=== PATIENT | female | born 1945 | race Caucasian/White ===

== ENCOUNTER → 2017-04-18 | Outpatient (CLI) | payer OTHER | LOC: FIMAGING 10:43 | PROVIDERS: ATTEND Internal Medicine | DX: Z12.31 Encounter for screening mammogram for malignant neoplasm of breast (principal) | CPT/HCPCS: G0202 ==

== ENCOUNTER → 2018-01-26 | Outpatient (CLI) | payer OTHER | LOC: BMCIMAGING 15:55 | PROVIDERS: ATTEND Internal Medicine | DX: J44.9 Chronic obstructive pulmonary disease, unspecified (principal) ==

== ENCOUNTER 2018-03-29 02:51 | Emergency (ER) | payer OTHER ==
[2018-03-29 03:01] VITALS: BP 160/67
--- NOTE | 2018-03-29 03:18 | EDPHY ---
H & P Stated Complaint: Accidentally pulled trach out while sleeping. Time Seen by Provider: 03/29/18 03:16 HPI/ROS: HPI CHIEF COMPLAINT: Accidentally removed tracheostomy HISTORY OF PRESENT ILLNESS: A very pleasant 72-year-old female recent significant medical history for subdural hemorrhage requiring a left-sided craniotomy at [facility], complicated by a prolonged course on the ventilator in the ICU and eventually got a tracheostomy. Additionally PEG tube. She has now been home. She lives in [place]. She presents emergency room as she accidentally pulled her tracheostomy out of her tracheotomy site this evening. No trouble breathing. Her son tried to place it back into the neck but was unable to do so. Patient wears an uncuffed 6.0 unfenestrated tracheostomy. Past Medical History: Subdural hemorrhage, trigeminal neuralgia Past Surgical History: Right-sided trigeminal neuralgia surgery, subdural her marriage requiring craniotomy, tracheostomy, peg tube Social History: Denies daily use drugs alcohol tobacco. Family History: Noncontributory ENT Doctor in [place]: Dr. Asif DAVIES REVIEW OF SYSTEMS: A comprehensive 10 point review of systems is otherwise negative aside from elements mentioned in the history of present illness. Exam Constitutional elderly, nontoxic triage nursing summary reviewed, vital signs reviewed, awake/alert. Eyes normal conjunctivae and sclera, EOMI, PERRLA. HENT neck exam: Open tracheostomy site. No significant bleeding. normal inspection, atraumatic, moist mucus membranes, no epistaxis, neck supple / no meningismus, no raccoon eyes. Respiratory clear to auscultation bilaterally, normal breath sounds, no respiratory distress, no wheezing. Cardiovascular rate normal, regular rhythm, no murmur, no edema, distal pulses normal. Gastrointestinal soft, non-tender, no rebound, no guarding, normal bowel sounds, no distension, no pulsatile mass. Genitourinary no CVA tenderness. Musculoskeletal no midline vertebral tenderness, full range of motion, no calf swelling, no tenderness of extremities, no meningismus, good pulses, neurovascularly intact. Skin pink, warm, & dry, no rash, skin atraumatic. Neurologic awake, alert and oriented x 3, AAOx3, moves all 4 extremities equally, motor intact, sensory intact, CN II-XII intact, normal cerebellar, normal vision, normal speech. Psychiatric normal mood/affect. Heme/Lymph/Immune no lymphadenopathy. Differential Diagnosis: Includes but is not limited to in a particular order need for new tracheostomy. Need for new placement of tracheostomy. Medical Decision Making: Plan for this patient will acquire 60 on fenestrated uncuffed tracheostomy tube. Re-evaluation: We did not have the correct size of the tracheostomy tube. It was an uncuffed on fenestrated tube. However the son brought from home with able to clean it and then place it directly into the open tracheostomy site with a guiding stylet. Patient tolerated this very well She now feels very comfortable with it. She is able to talk as her button was placed back on. She is breathing appropriately. Denies any significant pain. I have referred her to ENT here in [place] she lives in [place] but was seen ENT in [place]. This is difficult for her given her age. The sons requesting local ENT follow-up which I will provide for them. Additionally went over tracheostomy tube and equipment and explained everything in detail to the son they understand. Source: Patient - Personal History Current Tetanus/Diphtheria Vaccine: Unsure Current Tetanus Diphtheria and Acellular Pertussis (TDAP): Unsure - Medical/Surgical History Hx Asthma: No Hx Chronic Respiratory Disease: No Hx Diabetes: No Hx Cardiac Disease: No Hx Renal Disease: No Hx Cirrhosis: No Hx Alcoholism: No Hx HIV/AIDS: No Hx Splenectomy or Spleen Trauma: No Other PMH: Subdural hematoma, craniotomy, tracheotomy, PEG tube. - Social History Smoking Status: Former smoker Constitutional: Initial Vital Signs Temperature (C) 36.8 C 03/29/18 02:56 Heart Rate 86 03/29/18 02:56 Respiratory Rate 16 03/29/18 02:56 Blood Pressure 160/67 H 03/29/18 02:56 O2 Sat (%) 91 L 03/29/18 02:56 O2 Delivery Mode Room Air Allergies/Adverse Reactions: erythromycin base Allergy (Verified 03/29/18 03:02) Penicillins Allergy (Verified 03/29/18 03:01) tetracycline Allergy (Verified 03/29/18 03:02) Home Medications: Medication Instructions Recorded Baclofen 03/29/18 Carbamazepine 03/29/18 Venlafaxine 25MG (*) 03/29/18 Vimpat 03/29/18 Departure - Departure Disposition: Home, Routine, Self-Care Clinical Impression: Tracheostomy in place Condition: Good Instructions: Tracheostomy Care (ED) Additional Instructions: Return to the emergency room if there is any worsening symptoms questions or concerns. Referrals: Skye Bardales MD [Primary Care Provider] - As per Instructions Zachary Bay MD [Medical Doctor] - As per Instructions
== END 2018-03-29 03:50 | disposition home or self-care (01) ==
DX: Z43.0 Encounter for attention to tracheostomy (principal); Z87.891 Personal history of nicotine dependence

== ENCOUNTER → 2018-05-31 | Outpatient (CLI) | payer OTHER | LOC: FIMAGING 13:18 | PROVIDERS: ATTEND Internal Medicine | DX: Z12.31 Encounter for screening mammogram for malignant neoplasm of breast (principal) ==

== ENCOUNTER → 2018-06-08 | Outpatient (CLI) | payer OTHER | LOC: BMCIMAGING 10:07 | PROVIDERS: ATTEND Internal Medicine | DX: N60.02 Solitary cyst of left breast (principal) ==

== ENCOUNTER 2018-08-09 22:26 | Observation (INO) | payer OTHER ==
--- NOTE | 2018-08-09 22:32 | EDPHY ---
H & P Stated Complaint: mid back pain after lifting something this afternoon, "heard pop" Time Seen by Provider: 08/09/18 22:32 HPI/ROS: HPI CHIEF COMPLAINT: Upper lumbar spine pain. 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 The pain is located upper lumbar very low thoracic. It does radiate out paravertebral. She denies any leg pain. Denies saddle anesthesia, denies leg weakness, denies inability to walk. Pain does not go down her legs. It is localized to the upper lumbar spine. And paravertebral. No fever, no acute trauma. This happened when she was lifting a table earlier today. Patient denies any direct trauma, denies abdominal pain, chest pain or shortness of breath. Pain is located upper lumbar spine 1 focal area. Past Medical History: Subdural hemorrhage status post craniotomy, peg tube, tracheostomy. Past Surgical History: Subdural hemorrhage status post craniotomy. Peg tube, tracheotomy. Social History: Denies drugs alcohol tobacco. Family History: Noncontributory. ROS REVIEW OF SYSTEMS: 10 Systems were reviewed and negative with the exception of the elements mentioned in the history of present illness. Exam Constitutional appears well nontoxic triage nursing summary reviewed, vital signs reviewed, awake/alert. Eyes normal conjunctivae and sclera, EOMI, PERRLA. HENT neck tracheotomy site clothes, normal inspection, atraumatic, moist mucus membranes, no epistaxis, neck supple/ no meningismus, no raccoon eyes. Respiratory clear to auscultation bilaterally, normal breath sounds, no respiratory distress, no wheezing. Cardiovascular rate normal, regular rhythm, no murmur, no edema, distal pulses normal. Gastrointestinal soft, non-tender, no rebound, no guarding, normal bowel sounds, no distension, no pulsatile mass. Genitourinary no CVA tenderness. Musculoskeletal no significant saddle anesthesia, no leg weakness, normal gait, mild tender palpation upper lumbar spine 1 focal area and paravertebral, no crepitus, no step-offs, no evidence of trauma on external back exam, full range of motion, no calf swelling, no tenderness of extremities, no meningismus, good pulses, neurovascularly intact. Skin pink, warm, & dry, no rash, skin atraumatic. Neurologic awake, alert and oriented x 3, AAOx3, moves all 4 extremities equally, motor intact, sensory intact, CN II-XII intact, normal cerebellar, normal vision, normal speech. Psychiatric normal mood/affect. Heme/Lymph/Immune no lymphadenopathy. Differential Diagnosis: Includes but is not limited to in a particular order annular tear, disc herniation, nerve root compression, compression fracture cauda equina, spinal epidural abscess Medical Decision Making: Plan for this patient x-ray lumbar spine, IV establishment with IV pain medicine including IV fentanyl 50 mcg IV Valium 2.5 mg, IV Decadron gentle IV fluids and re-evaluate. Re-evaluation: 0101: Patient still has ongoing back pain. Unable to sit up. Plan will be for hospital admission for symptomatic back pain control. X-ray and CT scan reviewed. There may be small endplate fractures T11, L3. This may be causing her pain. Will keep in the hospital overnight will ask the hospitalist service to admit for pain control. Patient would prefer this. She does not feel comfortable going home. Spoke with the hospitalist service Dr. Lynn. Agrees to admit. Source: Patient - Personal History Current Tetanus Diphtheria and Acellular Pertussis (TDAP): Unsure - Medical/Surgical History Hx Asthma: No Hx Chronic Respiratory Disease: No Hx Diabetes: No Hx Cardiac Disease: No Hx Renal Disease: No Hx Cirrhosis: No Hx Alcoholism: No Hx HIV/AIDS: No Hx Splenectomy or Spleen Trauma: No Other PMH: Subdural hematoma, craniotomy, tracheotomy, PEG tube. - Social History Smoking Status: Former smoker Constitutional: Initial Vital Signs Temperature (C) 36.6 C 08/09/18 22:29 Heart Rate 92 08/09/18 22:29 Respiratory Rate 17 08/09/18 22:29 Blood Pressure 131/71 H 08/09/18 22:29 O2 Sat (%) 92 08/09/18 22:29 O2 Delivery Mode Nasal Cannula O2 (L/minute) 2 Allergies/Adverse Reactions: erythromycin base Allergy (Verified 08/09/18 22:27) Penicillins Allergy (Verified 08/09/18 22:27) tetracycline Allergy (Verified 08/09/18 22:27) Home Medications: Medication Instructions Recorded Acetaminophen [Tylenol 325mg (*)] 650 mg PO Q4HRS PRN tab 12/07/18 Acetamn/Diphenhydramine 500/25 2 each PO HS 08/10/18 [Tylenol PM (*)] Doxepin HCl [Doxepin HCl] 50 mg PO DAILY 08/10/18 Ganciclovir [Zirgan] 1 drop RTEYE QID 08/10/18 LORazepam [Ativan (*)] 0.5 - 1 mg PO Q8HRS PRN #5 tab 08/10/18 Levothyroxine [Synthroid 50 mcg 50 mcg PO DAILY06 08/10/18 (*)] Methocarbamol [Robaxin 750 mg (*)] 750 mg PO TID PRN #9 tab 08/10/18 Simvastatin [Simvastatin] 20 mg PO DAILY 08/10/18 Venlafaxine HCl [Venlafaxine HCl 150 mg PO DAILY 08/10/18 ER] carBAMazepine [Carbamazepine] 200 mg PO BID 08/10/18 prednisoLONE ACET 1% [Pred Forte 1 drops RTEYE BID 08/10/18 1% (*)] traMADol [Ultram 50 mg (*)] 50 mg PO HS 08/10/18 valACYclovir [Valtrex (*)] 500 mg PO DAILY 08/10/18 Medical Decision Making - Data Points Laboratory Results: Laboratory Results 08/09/18 22:54 08/09/18 22:45 Medications Given: Discontinued Medications Hydrocodone Bitart/Acetaminophen ([place] 5/325) 1 - 2 tab PO Q4HRS PRN PRN Reason: Pain, Moderate Able to Take PO Stop: 08/20/18 01:52 Last Admin: 08/10/18 11:01 Dose: 1 tab Dexamethasone (Decadron Injection) 10 mg IVP EDNOW ONE Stop: 08/09/18 22:38 Last Admin: 08/09/18 23:02 Dose: 10 mg Diazepam (Valium) 2.5 mg IVP EDNOW ONE Stop: 08/09/18 22:38 Last Admin: 08/09/18 22:51 Dose: 2.5 mg Enoxaparin Sodium (Lovenox) 40 mg SC DAILY XAVIER Stop: 02/06/19 08:59 Last Admin: 08/10/18 08:38 Dose: 40 mg Fentanyl (Sublimaze) 50 mcg IVP EDNOW ONE Stop: 08/09/18 22:38 Last Admin: 08/09/18 22:51 Dose: 50 mcg Hydromorphone HCl (Dilaudid) 0.5 mg IVP EDNOW ONE Stop: 08/09/18 23:29 Last Admin: 08/09/18 23:32 Dose: 0.5 mg Sodium Chloride (Ns) 500 mls @ 1,500 mls/hr IV ONCE ONE Stop: 08/09/18 22:56 Last Admin: 08/09/18 22:50 Dose: 500 mls Lorazepam (Ativan) 0.5 - 1 mg PO Q8HRS PRN PRN Reason: Anxiety, Able to Take PO Stop: 02/06/19 01:52 Last Admin: 08/10/18 03:49 Dose: 0.5 mg Departure - Departure Disposition: [facility] Clinical Impression: Low back strain Qualifiers: Encounter type: initial encounter Qualified Code(s): S39.012A - Strain of muscle, fascia and tendon of lower back, initial encounter Back pain Qualifiers: Back pain location: low back pain Chronicity: acute Back pain laterality: unspecified Sciatica presence: without sciatica Qualified Code(s): M54.5 - Low back pain Condition: Good
[2018-08-09] MEDS ORDERED: NS 500 ML IV ONE (22:37)
[2018-08-09] MEDS ORDERED: DIAZEPAM 5 MG/ML 1 ML SYR IVP ONE (22:37)
[2018-08-09] MEDS ORDERED: fentaNYL 100 MCG/2 ML INJ IVP ONE (22:37)
[2018-08-09] MEDS ORDERED: DEXAMETHASONE 10 MG/ML VIAL IVP ONE (22:37)
[2018-08-09] MEDS ORDERED: DEXAMETHASONE 4 MG/ML VIAL ONE (22:48)
[2018-08-09] MEDS ORDERED: HYDROmorphONE/DILAUDID 2 MG/ML INJ IVP ONE (23:28)
[2018-08-10 01:47] LABS: PLATELET COUNT 247 10^3/uL (150-400)
[2018-08-10 01:51] LABS: INR 0.87 (0.83-1.16); PROTIME(PATIENT) 12.1 SEC (12.0-15.0)
[2018-08-10] MEDS ORDERED: ONDANSETRON 4 MG/2 ML VIAL IVP PRN (01:53)
[2018-08-10] MEDS ORDERED: HYDROCODONE/APAP 5/325 TAB PO PRN (01:53)
[2018-08-10] MEDS ORDERED: ONDANSETRON DISINTEGRATING 4 MG TAB PO PRN (01:53)
[2018-08-10] MEDS ORDERED: ACETAMINOPHEN 325 MG TAB PO PRN (01:53)
[2018-08-10] MEDS ORDERED: LORazepam 0.5 MG TAB PO PRN (01:53)
--- NOTE | 2018-08-10 07:11 | GHP ---
DATE OF ADMISSION: 08/10/2018 PRIMARY CARE PHYSICIAN: Skye Bardales MD. SOURCE: Patient provides history, is a reliable historian. The EMR was reviewed and case discussed with ED provider. CHIEF COMPLAINT: Back pain. HISTORY OF PRESENT ILLNESS: This is a very pleasant 73-year-old female with past medical history sig nificant for osteoporosis, trigeminal neuralgia, right ocular shingles, recent history of iatrogenic subdural hematoma, status post craniotomy, trach and PEG back in January, now improved, and trach and PEG removed, who presents to the emergency department today with complaints of sudden onset of mid to lo w back pain spasms and pain. 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 The patient reports that she f elt a pop and sudden back pain and spasm. She did not note any numbness, tingling, focal weakness, u rinary or fecal incontinence or retention. The patient reports that she was in her usual state of he alth up until that point. She has known severe osteoporosis, but has declined to utilize any treatme nt due to a 1st cousin developing a severe bone fracture thought to be due to [place]. REVIEW OF SYSTEMS: Ten systems reviewed and negative except as noted above. ALLERGIES: Erythromycin, penicillin, tetracycline. HOME MEDICATIONS: Patient is currently on acyclovir p.o. and ocular drops, doxepin, Vimpat, venlafax ine, carbamazepine, Baclofen. PAST MEDICAL HISTORY: Significant for osteoporosis, right ocular shingles, trigeminal neuralgia. As noted above in January 2018, the patient underwent a craniotomy and had a subsequent complication of sub dural hematoma requiring more extensive craniotomy, trach, and PEG, which were recently removed. PAST SURGICAL HISTORY: Significant for bilateral cataract extraction with lens placement, craniotomy as noted above, tracheostomy, and PEG. FAMILY HISTORY: Significant for 1st cousin with osteoporosis. No family history of seizures or intr acranial hemorrhage. SOCIAL HISTORY: Patient lives with her son. She quit smoking tobacco many years ago. She denies an y illicit drug use. Occasional alcohol. CODE STATUS: Full. PHYSICAL EXAMINATION: VITAL SIGNS: Upon arrival to the emergency department, blood pressure 131/71, heart rate 92, respiratory rate 17, O2 saturation 92% on room air, temperature 36.6. Current vitals available: Blood pressure is 135/82, heart rate 92, respiratory rate 16, O2 saturatio n 92% on room air, temperature 36.6. GENERAL: No acute distress. Very pleasant, frail, thin lady is lying quietly in bed. When she move s, she does grimace and seems to writhe slightly in pain with complaints of back pain. HEAD: Normocephalic, atraumatic. Patient does have a slow healing appearing circular wound at the t op of her scalp and some abrasions and excoriations. EYES: Patient's right eye with conjunctival injection and tearing. Pupils are equal, round, react t o light bilaterally and symmetric. No scleral icterus appreciated. Lens reflexes appreciated bilate rally. ENT: Mucous membranes appear moist. Dentition in fair condition. No nasal discharge. NECK: Supple. Trachea midline. CV: Regular rate and rhythm. No murmurs, rubs, or gallops appreciated. RESPIRATORY: Lungs clear to auscultation bilaterally. No wheezes, rales, or rhonchi appreciated. U nlabored breathing. ABDOMEN: Positive bowel sounds. Soft, nontender to palpation. No rebound, guarding, or masses appr eciated. Patient with a well-healed small surgical scar in the left upper quadrant. : No suprapubic tenderness to palpation. No Jensen catheter in place. Patient has an external fem maverick urinal attached to suction with clear yellow urine. EXTREMITIES: No cyanosis, clubbing, or edema. Patient with some chronic lower extremity skin change s. Patient with 1+ pedal pulses bilaterally and symmetric. NEURO: Grossly nonfocal. Moves all extremities. Lower extremity movement with some difficulty, but sensation is intact and symmetric bilaterally. Strength overall is grossly diminished while lying i n bed. The patient unable to sit up independently due to increase in her pain. PSYCH: Patient does appear a little bit anxious, but she is pleasant and cooperative. Thought proce ss, content, and questions are all appropriate. IMAGING: Lumbar spine showing stable old moderate T12 compression fracture, unchanged from October 20. Suspect mild superior cortical endplate concavity which developed since previous study. Mild ge neralized compression fracture of L3 centrum, not previously seen. CT spine image report reviewed sh owing old moderate T12 compression fracture with mild dorsal retropulsion similar since 10/24/2015. There is mild superior cortical endplate compression deformity of T11 with some dorsal cortical buckl ing, could be acute. No significant central canal stenosis. Mild superior cortical endplate gold beatris deformity of L3, which could also be acute. No significant central canal stenosis. Stable bila teral adrenal gland adenomas, unchanged from 2016. ASSESSMENT AND PLAN: A very pleasant 73-year-old female with a history of osteoporosis, right ocular shingles, trigeminal neuralgia, recent hospital stay complicated by subdural hematomas requiring tra ch and PEG, who presents to the emergency department today with complaints of sudden onset of mid to low back pain following a lifting injury. 1. Back pain. Patient is mostly complaining currently of back spasm type pain, likely due to increa sed strain, but potentially some response to current acute mild compression fractures in the thoracic lumbar spine. The patient is trying to avoid narcotic therapy. Tylenol will be available as well a s Ativan for muscle relaxation and anxiety and sleep, which patient is just really trying to attain. K-pad p.r.n. Consider a Lidoderm patch. PT, OT in a.m. Discussed with the patient that I gave opt ion of neurosurgical evaluation, although discussed this is very low likely to be a surgical or proce dural need, and patient reports that she would not want to even consider a vertebroplasty at this taylor e and would like to continue with conservative management. 2. Endplate cortical compression fracture T11 and L3, which appear to be acute. Plan as noted above . Supportive care. 3. Chronic medical issues. 4. Right ocular shingles. Offered to order patient's acyclovir and drops. She declines at this taylor e. If needed, we will have family bring in. Patient hoping to discharge later today. 5. History of trigeminal neuralgia, stable. 6. Osteoporosis. Patient is not currently on any supplementation and she has declined bisphosphonat e therapy in the past. 7. Fluid, electrolyte, nutrition. The patient tolerating p.o. well. She did receive a small 500 cc bolus in the emergency department. Will encourage oral hydration at this point. Electrolytes are a ppropriate. No need for replacement. Diet as tolerated. 8. Prophylaxis. Sequential compression devices, holding anticoagulation. Anticipate short hospital stay, but consider in addition if patient should stay additional day. 9. Code status is full. DISPOSITION: Patient admitted to observation status on the Med-Surg floor for pain control and physi anh therapy evaluation. /[id number]/MODL
[2018-08-10] MEDS ORDERED: ENOXAPARIN 40 MG/0.4 ML SYR SC SCH (09:00)
--- NOTE | 2018-08-10 10:04 | ASMTCMCOM ---
CM Note CM Note Notes: CM reviewed pt's chart for d/c planning. Pt is a 73 y/o female that came to the ED after pain developed in her lumbar spine; she had been lifting a table and heard a "pop". Her pain is keeping her from 'sitting". Significant past medical hx includes a subdural hemorrhge status post craniotomy, peg tube and tracheotomy. Pt is retired. No CM needs identified. CM will follow for changes. D/C Plan: Anticipate independent. Date Signed: 08/10/2018 10:03 AM Electronically Signed By:Emilie Martinez
[2018-08-10 11:27] VITALS: BP 113/51
[2018-08-10] MEDS ORDERED: METHOCARBAMOL 750 MG TAB PO SCH (16:00)
--- NOTE | 2018-08-10 17:44 | GDS ---
DISCHARGE DIAGNOSIS: Acute back pain. PHYSICAL EXAM: GENERAL: The patient is alert. VITAL SIGNS: Afebrile at 36.9, pulse is 92, respirat ory rate 16, blood pressure is 113/51. She is saturating 92% on room air. I have seen and evaluated the patient on the day of discharge. HOSPITAL COURSE: The patient is a 73-year-old female who presented to the emergency room with compla ints of acute onset of back pain. She was evaluated during this hospitalization with a CT of the lum bar spine as well as x-ray. She received therapy evaluation from physical therapy and occupational t herapy. She is safe to be discharged home and is ambulating independently. There are no pending clark dies. DISCHARGE MEDICATIONS: Please refer to EMR form. I have provided the patient a prescription for Dale axin as well as Ativan at the time of disposition. Followup will be with her primary care physician. /[id number]/MODL
== END 2018-08-10 12:15 | disposition home or self-care (01) ==
LOC: F3E 08-10 02:16
PROVIDERS: ADMIT Family Medicine; ATTEND Family Medicine
DX: S39.012A Strain of muscle, fascia and tendon of lower back, initial encounter (principal); M80.08XA Age-related osteoporosis with current pathological fracture, vertebra(e), initial encounter for fracture; X50.0XXA Overexertion from strenuous movement or load, initial encounter; Y93.E9 Activity, other interior property and clothing maintenance; Y92.001 Dining room of unspecified non-institutional (private) residence as the place of occurrence of the external cause; G50.0 Trigeminal neuralgia; B02.39 Other herpes zoster eye disease; Z86.73 Personal history of transient ischemic attack (TIA), and cerebral infarction without residual deficits
CPT/HCPCS: 72100; 72131; 97116; 97161; 97165; G0378; G8978; G8979; G8980; G8987; G8988; G8989; J1100; J1170; J1650; J3010; J3360; 96374

== ENCOUNTER 2018-09-18 16:11 | Emergency (ER) | payer OTHER ==
--- NOTE | 2018-09-18 17:07 | EDPHY ---
H & P Stated Complaint: fell (unk reason)--poss LOC-wrist and face pain Time Seen by Provider: 09/18/18 16:44 HPI/ROS: CHIEF COMPLAINT: Fall, facial injuries HISTORY OF PRESENT ILLNESS: 73-year-old female presents after a fall with facial and wrist injuries. She tripped and fell forward, striking her face on the pavement. She tried to break her fall with her hands, now has bilateral wrist pain. She has a history of seizure disorder after a subdural hematoma. Currently taking Tegretol. She does not think she had a seizure today and there was no postictal confusion. Denies dizziness, headache or neck pain. REVIEW OF SYSTEMS: complete 10 point ROS reviewed and is negative except for the noted elements in the HPI Source: Patient - Personal History Current Tetanus/Diphtheria Vaccine: Unsure Current Tetanus Diphtheria and Acellular Pertussis (TDAP): Unsure - Medical/Surgical History Hx Asthma: No Hx Chronic Respiratory Disease: No Hx Diabetes: No Hx Cardiac Disease: No Hx Renal Disease: No Hx Cirrhosis: No Hx Alcoholism: No Hx HIV/AIDS: No Hx Splenectomy or Spleen Trauma: No Other PMH: Subdural hematoma, craniotomy 02/19, tracheotomy, PEG tube. - Social History Smoking Status: Former smoker Alcohol Use: Sober Drug Use: None - Physical Exam Exam: General Appearance: Alert, pleasant and talkative Head: facial abrasions Eyes: No conjunctival erythema, PERRLA, EOMI ENT, Mouth: Missing right upper teeth #6-8, nasal and right cheek abrasions Neck: Nontender, full range of motion without pain Respiratory: No chest wall tenderness, lungs clear bilaterally Cardiovascular: Regular rate and rhythm Abdomen: Abdomen is soft and nontender Skin: No lacerations Back: No midline T/L/S tenderness Extremities: Pelvis is stable and nontender; right wrist-tenderness and swelling on the medial aspect of the wrist; left wrist-tenderness and swelling over the lateral aspect of the wrist and proximal 4th digit Neurological: A&Ox3, normal motor function, normal sensory exam, cranial nerves intact Psychiatric: Mood and affect normal Constitutional: Initial Vital Signs Temperature (C) 36.4 C 09/18/18 16:35 Heart Rate 93 09/18/18 16:35 Respiratory Rate 16 09/18/18 16:35 Blood Pressure 112/70 09/18/18 16:35 O2 Sat (%) 94 09/18/18 16:35 O2 Delivery Mode Room Air Allergies/Adverse Reactions: erythromycin base Allergy (Verified 08/09/18 22:27) Penicillins Allergy (Verified 08/09/18 22:27) tetracycline Allergy (Verified 08/09/18 22:27) Home Medications: Medication Instructions Recorded Acetaminophen [Tylenol 325mg (*)] 650 mg PO Q4HRS PRN tab 08/10/18 Acetamn/Diphenhydramine 500/25 2 each PO HS 08/10/18 [Tylenol PM (*)] Doxepin HCl [Doxepin HCl] 50 mg PO DAILY 08/10/18 Ganciclovir [Zirgan] 1 drop RTEYE QID 08/10/18 LORazepam [Ativan (*)] 0.5 - 1 mg PO Q8HRS PRN #5 tab 08/10/18 Levothyroxine [Synthroid 50 mcg 50 mcg PO DAILY06 08/10/18 (*)] Methocarbamol [Robaxin 750 mg (*)] 750 mg PO TID PRN #9 tab 08/10/18 Simvastatin [Simvastatin] 20 mg PO DAILY 08/10/18 Venlafaxine HCl [Venlafaxine HCl 150 mg PO DAILY 08/10/18 ER] carBAMazepine [Carbamazepine] 200 mg PO BID 08/10/18 prednisoLONE ACET 1% [Pred Forte 1 drops RTEYE BID 08/10/18 1% (*)] traMADol [Ultram 50 mg (*)] 50 mg PO HS 08/10/18 valACYclovir [Valtrex (*)] 500 mg PO DAILY 08/10/18 Hydrocodone/APAP 5/325 [[place] 1 - 2 tab PO Q4H PRN #10 tab 09/18/18 5/325] Medical Decision Making - Diagnostics EKG Interpretation: EKG interpreted by me reveals normal sinus rhythm, rate of 87, diffuse nonspecific T-wave changes. Interpretation: Borderline EKG Imaging Results: Head CT 09/18/18 17:03 Impression: No acute intracranial hemorrhage or calvarial fracture. Celia Lindquist was notified of these findings by telephone at 5:44 PM on 09/18/2018 Left hand x-ray reveals a proximal 4th metacarpal fracture Right wrist x-ray reveals a distal radius fracture Imaging: I viewed and interpreted images myself Procedures: Orthoglass sugar-tong splint placed on the right upper extremity by the biomed tech. Neurovascularly intact after application. Ulnar gutter splint placed on the left upper extremity by the biomed tech. Neurovascularly intact after application. ED Course/Re-evaluation: This pt presents after a mechanical fall with bilateral UE injuries, facial abrasions and dental avulsions. Xrays reviewed with pt, splints placed. Strongly wants to go home, asymptomatic thoughout ED stay. labs/EKG unremarkable. Ultimately pt decided to d/c orthoglass splint LUE and have a left velcro splint placed so she could perform routine activities of daily living. Will f/u with hand surgeon. Differential Diagnosis: includes though not limited to ICH, Cspine fx, Ptx, hemorrhage, seizure, syncope - Data Points Laboratory Results: Laboratory Results 09/18/18 18:14 09/18/18 18:14 Point of Care Test Results: Chemistry 09/18/18 18:33 POC Troponin I 0.01 ng/mL ng/mL (0.00-0.08) Departure - Departure Disposition: Home, Routine, Self-Care Clinical Impression: Fracture of fourth metacarpal bone of left hand Qualifiers: Encounter type: initial encounter Fracture type: closed Metacarpal location: base Fracture alignment: displaced Qualified Code(s): S62.315A - Displaced fracture of base of fourth metacarpal bone, left hand, initial encounter for closed fracture Fracture of right distal radius Qualifiers: Encounter type: initial encounter Fracture type: closed Fracture morphology: Colles' Qualified Code(s): S52.531A - Colles' fracture of right radius, initial encounter for closed fracture Condition: Good Instructions: Hand Fracture (ED), Wrist Fracture in Adults (ED) Referrals: Skye Bardales MD [Primary Care Provider] - As per Instructions Todd Grider MD [Medical Doctor] - As per Instructions (Call to make an appointment with Dr. Grider. He is a hand surgeon.) Prescriptions: Hydrocodone/APAP 5/325 [[place] 5/325] 1 - 2 tab PO Q4H PRN #10 tab PRN Reason: Pain, Moderate
[2018-09-18 18:24] LABS: PLATELET COUNT 199 10^3/uL (150-400)
[2018-09-18 19:33] VITALS: BP 118/78
--- NOTE | 2018-09-18 23:12 | CPEKG ---
Test Reason : OPEN Blood Pressure : / mmHG Vent. Rate : 087 BPM Atrial Rate : 087 BPM P-R Int : 154 ms QRS Dur : 079 ms QT Int : 386 ms P-R-T Axes : 050 040 018 degrees QTc Int : 465 ms Sinus rhythm Borderline T wave abnormalities Confirmed by Celia Lindquist ([id number]) on 09/18/2018 11:11:29 PM Referred By: Confirmed By:Celia Lindquist
== END 2018-09-18 19:34 | disposition home or self-care (01) ==
PROC: 2W3CX1Z Immobilization of Right Lower Arm using Splint (ICD-10-PCS; principal; 2018-09-18)
DX: S62.315A Displaced fracture of base of fourth metacarpal bone, left hand, initial encounter for closed fracture (principal); S52.531A Colles' fracture of right radius, initial encounter for closed fracture; S00.81XA Abrasion of other part of head, initial encounter; M81.0 Age-related osteoporosis without current pathological fracture; G43.909 Migraine, unspecified, not intractable, without status migrainosus; W01.198A Fall on same level from slipping, tripping and stumbling with subsequent striking against other object, initial encounter; Y92.9 Unspecified place or not applicable; Y93.9 Activity, unspecified; Y99.9 Unspecified external cause status; Z87.891 Personal history of nicotine dependence
CPT/HCPCS: 29125; 70450; 73110; 73130; 93005; 99285; A4565; 84484-ER

== ENCOUNTER 2019-01-23 00:46 | Emergency (ER) | payer OTHER ==
--- NOTE | 2019-01-23 01:01 | EDPHY ---
H & P Stated Complaint: trip and fall, L wrist pain Time Seen by Provider: 01/23/19 00:55 HPI/ROS: Chief Complaint: Wrist injury HPI: 73-year-old woman had a mechanical trip and fall for rug this morning. She landed on her left outstretched wrist. She had immediately onset of pain and noted deformity. Recently had a fracture of the carpal bones on her left hand status post pinning in November. He did not hit her head. No loss of conscious. ROS: 10 systems were reviewed and were negative except those elements noted in the HPI. Social History: No smoking, no alcohol, no recreational drug use Family History: non-contributory Physical Exam: Gen: Awake, Alert, No Distress HEENT: Nose: no rhinorrhea Eyes: PERRLA, EOMI Mouth: Moist mucosa Neck: Supple, no JVD Chest: nontender, lungs clear to auscultation Heart: S1, S2 normal, no murmur Abd: Soft, non-tender, no guarding Back: no CVA tenderness, no midline tenderness Ext: Left wrist deformity consistent with a distal radial fracture. Sensation intact in the radial, median, and ulnar nerve distribution. Capillary refill less than 2 sec. Skin: no rash Neuro: CN II-XII intact, Sensation grossly intact, Strength 5/5 in bilateral upper and lower extremities - Personal History Current Tetanus/Diphtheria Vaccine: Yes Current Tetanus Diphtheria and Acellular Pertussis (TDAP): Yes - Medical/Surgical History Hx Asthma: No Hx Chronic Respiratory Disease: No Hx Diabetes: No Hx Cardiac Disease: No Hx Renal Disease: No Hx Cirrhosis: No Hx Alcoholism: No Hx HIV/AIDS: No Hx Splenectomy or Spleen Trauma: No Other PMH: Subdural hematoma, craniotomy 02/19, tracheotomy, PEG tube. - Social History Smoking Status: Former smoker Constitutional: Initial Vital Signs Temperature (C) 36.6 C 01/23/19 00:54 Heart Rate 84 01/23/19 00:54 Respiratory Rate 16 01/23/19 00:54 Blood Pressure 123/60 H 01/23/19 00:54 O2 Sat (%) 91 L 01/23/19 00:54 O2 Delivery Mode Room Air Allergies/Adverse Reactions: erythromycin base Allergy (Verified 01/23/19 00:53) Penicillins Allergy (Verified 01/23/19 00:53) tetracycline Allergy (Verified 01/23/19 00:53) Home Medications: Medication Instructions Recorded Acetaminophen [Tylenol 325mg (*)] 650 mg PO Q4HRS PRN tab 08/10/18 Acetamn/Diphenhydramine 500/25 2 each PO HS 08/10/18 [Tylenol PM (*)] Doxepin HCl [Doxepin HCl] 50 mg PO DAILY 08/10/18 Ganciclovir [Zirgan] 1 drop RTEYE QID 08/10/18 LORazepam [Ativan (*)] 0.5 - 1 mg PO Q8HRS PRN #5 tab 08/10/18 Levothyroxine [Synthroid 50 mcg 50 mcg PO DAILY06 08/10/18 (*)] Methocarbamol [Robaxin 750 mg (*)] 750 mg PO TID PRN #9 tab 08/10/18 Simvastatin [Simvastatin] 20 mg PO DAILY 08/10/18 Venlafaxine HCl [Venlafaxine HCl 150 mg PO DAILY 08/10/18 ER] carBAMazepine [Carbamazepine] 200 mg PO BID 08/10/18 prednisoLONE ACET 1% [Pred Forte 1 drops RTEYE BID 08/10/18 1% (*)] traMADol [Ultram 50 mg (*)] 50 mg PO HS 08/10/18 valACYclovir [Valtrex (*)] 500 mg PO DAILY 08/10/18 Hydrocodone/APAP 5/325 [[place] 1 - 2 tab PO Q4H PRN #10 tab 09/18/18 5/325] Medical Decision Making - Diagnostics Imaging Results: Left wrist x-ray reveals a dorsally angled distal radius fracture per my interpretation. Imaging: I viewed and interpreted images myself Procedures: Procedure note: Hematoma block Indication: Left distal radius fracture Patient was prepped with chlorhexidine prep during using sterile technique and syringe and 18 gauge needle was inserted from the volar aspect into the fracture site. Blood was aspirated successfully. A total of 10 mL of 1% lidocaine was infiltrated into the fracture site with out complications. The patient experienced significant analgesia. The site was dressed with a sterile dressing. The patient tolerated the procedure well. Procedure performed by me. Procedure: Fracture reduction. Patient had a left distal radius fracture. A hematoma block was performed by me. Patient was placed in finger traps and was placed in counter traction with 4 kilos of weight with dangling. The fracture was reduced with direct pressure and alignment with good approximation. The wrist was splinted with 2 in plaster , padding and Paul wrap. Splinting was performed by me. Postreduction fell a showed good alignment. There are no complications. ED Course/Re-evaluation: Fracture was reduced and splinted by me. She had good immobility and normal perfusion. Patient will be discharged with follow up with her surgeon. Departure - Departure Disposition: Home, Routine, Self-Care Clinical Impression: Wrist fracture Condition: Good Instructions: Wrist Fracture in Adults (ED) Additional Instructions: Take ibuprofen, 600 mg every 8 hr. You may alternate with acetaminophen, 1000 mg every 8 hr. Apply ice for 15 min of every hour while awake. Follow up with orthopedic surgeon in 4-5 days for further evaluation. Referrals: Todd Grider MD [Medical Doctor] - As per Instructions
[2019-01-23 03:01] VITALS: BP 150/77
== END 2019-01-23 02:46 | disposition home or self-care (01) ==
PROC: 0PSJXZZ Reposition Left Radius, External Approach (ICD-10-PCS; principal; 2019-01-23)
DX: S52.512A Displaced fracture of left radial styloid process, initial encounter for closed fracture (principal); W01.0XXA Fall on same level from slipping, tripping and stumbling without subsequent striking against object, initial encounter; Z87.891 Personal history of nicotine dependence
CPT/HCPCS: 25605; 73100; 73110; 99283; A4565